=== PATIENT | female | born 1945 | race Caucasian/White ===

== ENCOUNTER → 2022-07-03 | Outpatient (CLI) | payer MEDICARE, BC ==
--- NOTE | 2022-07-03 18:58 | MR ---
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 Neck pain, weakness COMPARISON: None. TECHNIQUE: Multi planar, multi sequence imaging was performed utilizing: T1-weighted, T2-weighted, an d turbo inversion recovery imaging of the cervical spine. IV Contrast: None FINDINGS: Alignment: The cervical vertebral bodies have preserved heights. Alignment is within normal limits gi bryan patient positioning. Bones: There is a expansile mass thought to be coming from the C5 vertebrae which expands into the sp inal canal and left posterior elements. This appears to be within the bone itself and grossly measure s 2.6 x 2.4 x 1.8 cm. Cord: The spinal cord is displaced rightward at the level of C4-C5 secondary to mass described above. Discs: Multilevel disc desiccation is present. C2-C3: No significant disc pathology. The spinal canal is patent. No neural foraminal stenosis. C3-C4: No significant disc pathology. The spinal canal is patent. No neural foraminal stenosis. C4-C5: No significant disc pathology. The spinal canal is patent. Severe left neural foraminal steno sis secondary to mass described above. The right neural foramen is moderately narrowed secondary to u ncovertebral joint and facet joint arthropathy. C5-C6: No significant disc pathology. The spinal canal is patent. Severe left neural foraminal steno sis secondary to mass described above. The right neural foramen is moderately narrowed secondary to u ncovertebral joint and facet joint arthropathy. C6-C7: No significant disc pathology. The spinal canal is patent. No neural foraminal stenosis. C7-T1: No significant disc pathology. The spinal canal is patent. No neural foraminal stenosis. Other: None. IMPRESSION: Expansile mass felt to be within the C5 vertebral body which extends into the spinal canal and the le ft C5 vertebrae posterior elements resulting in severe left C4-C5 and C5-C6 neural foraminal stenosis . This displaces the spinal cord to the right. Spinal cord signal is grossly maintained. Further work up is recommended as well as comparisons priors at outside institutions. Consider CT C-spine with for further evaluation the osseous structures.
== END | disposition home or self-care (01) ==
LOC: RADMRIMAIN 11:38
PROVIDERS: ATTEND Psychiatry & Neurology Neurology
DX: M50.01 Cervical disc disorder with myelopathy, high cervical region (principal); M99.71 Connective tissue and disc stenosis of intervertebral foramina of cervical region
CPT/HCPCS: 72141

== ENCOUNTER → 2022-07-16 | Outpatient (CLI) | payer MEDICARE, BC ==
--- NOTE | 2022-07-17 18:45 | CT ---
EXAMINATION TYPE: CT cervical spine wo/w con, CT soft tissue neck wo/w con CT DLP: 860.90 mGycm, Automated exposure control for dose reduction was used. DATE OF EXAM: 07/16/2022 4:10 PM COMPARISON: MRI cervical spine 07/03/2022. CLINICAL INDICATION:Female, 77 years old with history of R22.2 LOCALIZEDSWELLING,MASS AND LUMP,TRUNK, R93.7, neck pain/pressure and left side arm numbness and tingle. abnormal MRI poss mass/lump. TECHNIQUE: Axial CT images from the skull base to the inferior aspect of T2 we obtained with and without IV cont rast. Coronal and sagittal reformatted images were also reviewed. Additional pre and postcontrast CT imaging of the neck was performed. A total of 70 cc of Isovue-370 was administered. Coronal and sagittal reformatted images were also reviewed. FINDINGS: Fracture: None. Osseous structures: At the level of the fifth vertebrae is a soft tissue mass measuring 19 x 15 x 22 mm with expansion felt to be into the osseous structures. Mass expands into the C5 vertebral body, le ft transverse process, pedicle and minimally in the lamina. This displaces the spinal cord posterior laterally to the right. This displaces the left C4-C5 exiting nerve. Soft tissue in the neural forame n best appreciated on series 3 image 71. This mass does demonstrate 56 Hounsfield units precontrast a nd 64 Hounsfield units postcontrast imaging. Mild multilevel osteophyte formation and disc degeneration changes. Vertebral alignment: Alignment within normal limits. Spinal canal/Neural Foramina: Moderate spinal canal stenosis secondary to mass mentioned above at the level of C5 is associated soft tissue at C4-C5 on the left completely filling the neural foramen. No additional areas of high-grade spinal canal stenosis. There is mild stenosis at C5-C6 with secondary to disc osteophyte complexes just inferior to the mass. Other: The airway is patent. The lung apices are clear. Brain: Visualized portions are grossly unremarkable. Orbits: Unremarkable Sinuses: Grossly unremarkable. Spaces of the neck: Clear and symmetric. Musculoskeletal: No acute osseous pathology. Lymph nodes: Multiple nonenlarged lymph nodes are seen along both anterior chains of the neck. Vascular structures: Visualized major arteries are patent without evidence of aneurysm. The visualize d vasculature is patent with scattered mild atherosclerosis. Thoracic Inlet/airway: Airway is patent. The lung apices are clear. Soft tissues/Thyroid: Thyroid and remainder of the soft tissues are unremarkable. Other: none. IMPRESSION: 1. Findings from prior MRI are confirmed with Soft tissue mass at the level of C5 vertebral body whi ch appears to be eroding process extending into the C5 vertebral body left pedicle and posterior point lay ira ents. This creates moderate spinal canal stenosis as well as a high degree of neural foraminal stenos is at left C4-C5 and to a lesser extent the left C5-C6 neural foramen. 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 Neurosurgical consultation recommended. 2. No evidence of spinal fracture. 3. Mild multilevel disc degeneration changes.
== END | disposition home or self-care (01) ==
LOC: RADCTMAIN 14:28
PROVIDERS: ATTEND Psychiatry & Neurology Neurology
DX: M48.02 Spinal stenosis, cervical region (principal); M99.71 Connective tissue and disc stenosis of intervertebral foramina of cervical region; M50.30 Other cervical disc degeneration, unspecified cervical region; R22.2 Localized swelling, mass and lump, trunk
CPT/HCPCS: 82565; 84520; 72127; 70492; 36415; Q9967

== ENCOUNTER → 2022-07-19 | Outpatient (CLI) | payer MEDICARE, BC ==
--- NOTE | 2022-07-19 11:59 | MR ---
EXAMINATION TYPE: MR cervical spine w con DATE OF EXAM: 07/19/2022 10:49 AM CLINICAL INDICATION:Female, 77 years old with history of R22.2 SWELLING, MASS AND LUMP, TRUNK Swellin g, mass COMPARISON: CT cervical spine 07/16/2022 and 07/19/2022r TECHNIQUE: Postcontrast imaging T1-weighted only of the cervical spine including axial and sagittal i maging. MR contrast: IV Contrast: 5.5 cc Gadavist, None. FINDINGS: Redemonstration of enhancing mass at the level of C5 measuring up to 2.3 x 2.4 x 1.1 cm which invades into the C4-C5 neural foramen and into the spinal canal at this level. There is redemonstration of m oderate spinal canal stenosis with slight rightward shift of the spinal cord and severe C4-C5 left ne ural foraminal stenosis. The left C5 transverse process including the vertebral artery/vein are not d efinitively visualized. IMPRESSION: 1. Avidly enhancing mass at the level of the left C4-C5 region which is felt to be arising from the C4-C5 neural foramen and extending into the bone at C5. This could represent mass effect from a nerve sheath tumor versus meningioma versus other etiologies. 2. Nonvisualization of the left vertebral artery/vein at the level of C5 secondary to #1. 3. C4-C5 severe neural foraminal stenosis and moderate spinal canal stenosis secondary to #1.
== END | disposition home or self-care (01) ==
LOC: RADMRIMAIN 10:06
PROVIDERS: ATTEND Psychiatry & Neurology Neurology
DX: M48.02 Spinal stenosis, cervical region (principal); M99.71 Connective tissue and disc stenosis of intervertebral foramina of cervical region; R22.2 Localized swelling, mass and lump, trunk
CPT/HCPCS: 72142; A9585

== ENCOUNTER → 2022-11-27 | Outpatient (CLI) | payer MEDICARE, BC ==
--- NOTE | 2022-11-27 15:27 | CT ---
EXAMINATION TYPE: CT brain wo con DATE OF EXAM: 11/27/2022 HISTORY: syncope CT DLP: 1017.7 mGycm. Automated Exposure Control for Dose Reduction was Utilized. TECHNIQUE: CT scan of the head is performed without contrast. COMPARISON: None. FINDINGS: There is no acute intracranial hemorrhage or midline shift identified. There is mild to m oderate diffuse ventricular and sulcal prominence consistent with diffuse age-related cerebral atroph y. There is mild to moderate low-attenuation in the periventricular white matter most likely consist ent with chronic small vessel ischemic change in patient of this age. The globes are intact and the visualized sinuses are clear. IMPRESSION: No acute intracranial hemorrhage or midline shift. There is [id number] diffuse ce rebral atrophy and probable chronic small vessel ischemic change noted.
== END | disposition home or self-care (01) ==
LOC: RADCTMAIN 14:53
PROVIDERS: ATTEND Internal Medicine
DX: G31.9 Degenerative disease of nervous system, unspecified (principal); R42 Dizziness and giddiness
CPT/HCPCS: 70450

== ENCOUNTER → 2023-03-13 | Outpatient (CLI) | payer MEDICARE, BC ==
--- NOTE | 2023-03-14 09:06 | MM ---
Reason for Exam: Screening (asymptomatic). Last mammogram was performed 4 year(s) and 2 month(s) ago. Patient History: Menarche at age 13. Patient has no children. Left ovary removed at age 53. Right ovary removed at age 53. Hysterectomy at age 53. Postmenopausal. Maternal cousin had breast cancer at or over age 50. Maternal cousin had breast cancer at or over age 50. Maternal cousin had breast cancer at or over age 50. Sister had breast cancer at or over age 50. Risk Values: Lina 5 year model risk: 3.5%. NCI Lifetime model risk: 7.0%. Prior Study Comparison: 12/25/2016 Bilateral Screening Mammogram, [facility] [place]. 01/07/2018 Bilateral Screening Mammogram, [facility] [place]. 01/12/2019 Bilateral Screening Mammogram, [facility] [place]. Tissue Density: The breast tissue is heterogeneously dense. This may lower the sensitivity of mammography. Findings: Analyzed By CAD. There is no suspicious group of microcalcifications or new suspicious mass in either breast. Overall Assessment: Benign, BI-RAD 2 Management: Screening Mammogram of both breasts in 1 year. . Patient should continue monthly self-breast exams. A clinical breast exam by your physician is recommended on an annual basis. This exam should not preclude additional follow-up of suspicious palpable abnormalities. Note on Lina scores and lifetime risk: 1. A Lian score greater than 3% is considered moderate risk. If this is the case, consider specialist referral to assess eligibility for a risk reducing agent. 2. If overall lifetime risk for the development of breast cancer is 20% or higher, the patient may qualify for future screening with alternating mammogram and breast MRI. Electronically signed and approved by: Jaron Llamas M.D. Radiologis
== END | disposition home or self-care (01) ==
LOC: RADMAMWWP 10:54
PROVIDERS: ATTEND Internal Medicine
DX: Z12.31 Encounter for screening mammogram for malignant neoplasm of breast (principal); Z78.0 Asymptomatic menopausal state; Z80.3 Family history of malignant neoplasm of breast
CPT/HCPCS: 77063; 77067

== ENCOUNTER → 2023-03-13 | Outpatient (CLI) | payer MEDICARE, BC ==
--- NOTE | 2023-03-13 12:09 | CTL ---
EXAMINATION TYPE: CT Low Dose Lung DATE OF EXAM ORDERED: 03/13/2023 HISTORY: . Lung cancer screening CT DLP: [address] CTDI: 1.9 mGy Automated exposure control for dose reduction was used. COMPARISON: None available. TECHNIQUE: Low dose computed tomography scan was performed through the chest at 1 mm thick sections a nd reconstructed images in multiple planes at 1 mm and [address] DIAGNOSTIC QUALITY: Satisfactory FINDINGS: LUNG NODULES: None. LUNGS: COPD: Severity: None Fibrosis: Severity: None Lymph nodes: No adenopathy. Other findings: RIGHT PLEURAL SPACE: Effusion: None Calcification: None Thickening: None Pneumothorax: None LEFT PLEURAL SPACE: Effusion: None Calcification: None Thickening: None Pneumothorax: None HEART: Heart Size: Normal Coronary Calcification: None Pericardial Effusion: None OTHER FINDINGS: Upper abdomen: None Bony thorax: None Supraclavicular region: None Other: None IMPRESSION: Negative lung cancer screening examination for significant pulmonary nodules. CT LUNG RAD AND CT CHEST RECOMMENDATION: Lung-Rad 1 Negative: Continue annual screening with LDCT in 12 months. S Modifier (other clinically significant findings): None.
== END | disposition home or self-care (01) ==
LOC: RADCTMAIN 11:26
PROVIDERS: ATTEND Internal Medicine
DX: Z12.2 Encounter for screening for malignant neoplasm of respiratory organs (principal); Z87.891 Personal history of nicotine dependence
CPT/HCPCS: 71271

== ENCOUNTER 2023-05-25 07:04 | Inpatient (IN) | payer MEDICARE, BC ==
[2023-05-25 08:17] LABS: Basophils # (A) 0.1 k/uL (0-0.2); Basophils % (A) 1 %; Eosinophils # (A) 0.1 k/uL (0-0.7); Eosinophils % (A) 2 %; HCT 45.1 % (34.0-46.0); HGB 14.6 gm/dL (11.4-16.0); Lymphocytes # (A) 1.3 k/uL (1.0-4.8); Lymphocytes % (A) 16 %; MCH 29.6 pg (25.0-35.0); MCHC 32.5 g/dL (31.0-37.0); Mean Platelet Volume 7.8; Monocytes # (A) 0.6 k/uL (0-1.0); Monocytes % (A) 8 %; Neutrophils # (A) 5.7 k/uL (1.3-7.7); Neutrophils % (A) 72 %; Platelet Count 331 k/uL (150-450); RBC 4.95 m/uL (3.80-5.40); WBC 7.9 k/uL (3.8-10.6)
--- NOTE | 2023-05-25 09:16 | ED ---
General Adult HPI - General Chief complaint: GI Bleed Stated complaint: GI Bleed Time Seen by Provider: 05/25/23 08:55 Source: patient, RN notes reviewed, old records reviewed Mode of arrival: ambulatory Limitations: no limitations - History of Present Illness Initial comments: This is a 78-year-old female who presents emergency Department complaining of having diarrhea all day yesterday and 8:00 last night started having bright red blood per rectum and she states now she is just passing blood and clots. Patient states she's had a colonoscopy about 4 years ago and is supposed to have it every 3 years because of significant family history. Patient states is a little abdominal pressure in the suprapubic region but there is no point tenderness. Patient denies any nausea vomiting. Patient has any difficulty breathing or shortness of breath. Patient denies any lightheadedness or dizziness. Eyes any blood thinners - Related Data Allergies Allergy/AdvReac Type Severity Reaction Status Date / Time codeine Allergy Unknown Verified 05/25/23 07:14 shellfish derived Allergy Anaphylaxis Verified 05/25/23 07:14 Review of Systems ROS Statement: Those systems with pertinent positive or pertinent negative responses have been documented in the HPI. ROS Other: All systems not noted in ROS Statement are negative. Past Medical History Past Medical History: COPD, Hyperlipidemia, Hypertension History of Any Multi-Drug Resistant Organisms: None Reported Past Surgical History: Orthopedic Surgery Past Psychological History: Anxiety, Depression Smoking Status: Former smoker Past Alcohol Use History: None Reported Past Drug Use History: None Reported General Exam - General Exam Comments Initial Comments: GENERAL: Patient is well-developed and well-nourished. Patient is nontoxic and well- hydrated and is in mild distress. ENT: Neck is soft and supple. No significant lymphadenopathy is noted. Oropharynx is clear. Moist mucous membranes. Neck has full range of motion without eliciting any pain. EYES: The sclera were anicteric and conjunctiva were pink and moist. Extraocular movements were intact and pupils were equal round and reactive to light. Eyelids were unremarkable. PULMONARY: Unlabored respirations. Good breath sounds bilaterally. No audible rales rhonchi or wheezing was noted. CARDIOVASCULAR: There is a regular rate and rhythm without any murmurs gallops or rubs. ABDOMEN: Patient has minimal tenderness in the suprapubic region SKIN: Skin is clear with no lesions or rashes and otherwise unremarkable. NEUROLOGIC: Patient is alert and oriented x3. Cranial nerves II through XII are grossly intact. Motor and sensory are also intact. Normal speech, volume and content. Symmetrical smile. MUSCULOSKELETAL: Normal extremities with adequate strength and full range of motion. LYMPHATICS: No significant lymphadenopathy is noted PSYCHIATRIC: Normal psychiatric evaluation. Limitations: no limitations Course Vital Signs 05/25/23 05/25/23 05/25/23 07:12 09:30 10:05 Temperature 98 F 98.2 F Pulse Rate 86 74 70 Respiratory 18 16 17 Rate Blood Pressure 169/83 152/88 166/80 O2 Sat by Pulse 96 96 95 Oximetry 05/25/23 05/25/23 11:11 12:15 Temperature 98.2 F Pulse Rate 78 74 Respiratory 17 18 Rate Blood Pressure 158/85 155/90 O2 Sat by Pulse 96 99 Oximetry Medical Decision Making - Medical Decision Making Patient was diagnosed with diverticulitis 1:20 PM Was pt. sent in by a medical professional or institution (, PA, DISABILITY AIDE, urgent care, hospital, or alf...) When possible be specific @ -[No] Did you speak to anyone other than the patient for history (EMS, parent, family, police, friend...)? What history was obtained from this source @ -[No] Did you review nursing and triage notes (agree or disagree)? Why? @ -[I reviewed and agree with nursing and triage notes] Were old charts reviewed (outside hosp., previous admission, EMS record, old EKG, old radiological studies, urgent care reports/EKG's, alf records)? Report findings @ -I reviewed prior charts in prior labwork on this patient Differential Diagnosis (chest pain, altered mental status, abdominal pain women, abdominal pain men, vaginal bleeding, weakness, fever, dyspnea, syncope, headache, dizziness, GI bleed, back pain, seizure, CVA, palpatations, mental health, musculoskeletal)? @ -Differential Abdominal Pain Women: Appendicitis, Cholecystitis, diverticulosis, ischemic bowel, pancreatitis, hepatitis, UTI, gastroenteritis, AAA, incarcerated hernia, bowel obstruction, constipation, inflammatory bowel, hepatitis, peptic ulcer disease, splenic infarction, perforated viscus, vulvitis, ovarian torsion, PID, kidney stone, placenta abruption, this is not meant to be an all-inclusive list EKG interpreted by me (3pts min.). @ -[As above] X-rays interpreted by me (1pt min.). @ -[None done] CT interpreted by me (1pt min.). @ -Computed tomography scan of the abdomen and pelvis shows diverticulitis with diverticulosis. U/S interpreted by me (1pt. min.). @ -[None done] What testing was considered but not performed or refused? (CT, X-rays, U/S, labs)? Why? @ -[None] What meds were considered but not given or refused? Why? @ -[None] Did you discuss the management of the patient with other professionals (professionals i.e. DrMandy, PA, DISABILITY AIDE, lab, RT, psych nurse, dialysis social worker, yard general car supervisor, teacher, special service officer, spring encaser)? Give summary @ -I spoke with some physicians he agreed to admit the patient I spoke with Dr. Patrick she agreed to be on consult for the patient Was smoking cessation discussed for >3mins.? @ -[No] Was critical care preformed (if so, how long)? @ -[No] Were there social determinants of health that impacted care today? How? (Homelessness, low income, unemployed, alcoholism, drug addiction, transportation, low edu. Level, literacy, decrease access to med. care, detention, rehab)? @ -[No] Was there de-escalation of care discussed even if they declined (Discuss DNR or withdrawal of care, Hospice)? DNR status @ -[No] What co-morbidities impacted this encounter? (DM, HTN, Smoking, COPD, CAD, Cancer, CVA, ARF, Chemo, Hep., AIDS, mental health diagnosis, sleep apnea, morbid obesity)? @ -[None] Was patient admitted / discharged? Hospital course, mention meds given and ro tatitlek, prescriptions, significant lab abnormalities, going to OR and other pertinent info. @ -Patient had diverticulitis and started the patient antibiotics. Patient's hemoglobin was stable but I did do repeat CBCs. I consulted Dr. Darnell redding wrote admitting orders. Some physicians agreed to admit the patient Undiagnosed new problem with uncertain prognosis? @ -[No] Drug Therapy requiring intensive monitoring for toxicity (Heparin, Nitro, Insulin, Cardizem)? @ -[No] Were any procedures done? @ -[No] Diagnosis/symptom? @ -GI bleed Acute, or Chronic, or Acute on Chronic? @ -Acute Uncomplicated (without systemic symptoms) or Complicated (systemic symptoms)? @ -Complicated Side effects of treatment? @ -[No] Exacerbation, Progression, or Severe Exacerbation? @ -[No] Poses a threat to life or bodily function? How? (Chest pain, [place], [place], pneumonia, PE, COPD, DKA, ARF, appy, cholecystitis, CVA, Diverticulitis, Homicidal, Suicidal, threat to staff... and all critical care pts) @ -Yes this could lead to anemia and hypoperfusion and end organ dysfunction Diagnosis/symptom? @ -Diverticulitis Acute, or Chronic, or Acute on Chronic? @ -Acute Uncomplicated (without systemic symptoms) or Complicated (systemic symptoms)? @ -Complicated Side effects of treatment? @ -[none] Exacerbation, Progression, or Severe Exacerbation] @ -[no] Poses a threat to life or bodily function? @ -Yesterday this could lead to sepsis and end organ dysfunction - Lab Data Result diagrams: 05/25/23 07:37 05/25/23 07:37 Lab Results 05/25/23 05/25/23 05/25/23 Range/Units 07:25 07:37 07:37 WBC 7.9 (3.8-10.6) k/uL RBC 4.95 (3.80-5.40) m/uL Hgb 14.6 (11.4-16.0) gm/dL Hct 45.1 (34.0-46.0) % MCV 91.0 (80.0-100.0) fL MCH 29.6 (25.0-35.0) pg MCHC 32.5 (31.0-37.0) g/dL RDW 13.0 (11.5-15.5) % Plt Count 331 (150-450) k/uL MPV 7.8 Neutrophils % 72 % Lymphocytes % 16 % Monocytes % 8 % Eosinophils % 2 % Basophils % 1 % Neutrophils # 5.7 (1.3-7.7) k/uL Lymphocytes # 1.3 (1.0-4.8) k/uL Monocytes # 0.6 (0-1.0) k/uL Eosinophils # 0.1 (0-0.7) k/uL Basophils # 0.1 (0-0.2) k/uL APTT 22.6 (22.0-30.0) sec Sodium (137-145) mmol/L Potassium (3.5-5.1) mmol/L Chloride (98-107) mmol/L Carbon Dioxide (22-30) mmol/L Anion Gap mmol/L BUN (7-17) mg/dL Creatinine (0.52-1.04) mg/dL Est GFR (CKD-EPI)AfAm (>60 ml/min/1.73 sqM) Est GFR (CKD-EPI)NonAf (>60 ml/min/1.73 sqM) Glucose (74-99) mg/dL Calcium (8.4-10.2) mg/dL Total Bilirubin (0.2-1.3) mg/dL AST (14-36) U/L ALT (4-34) U/L Alkaline Phosphatase (38-126) U/L Troponin I (0.000-0.034) ng/mL Total Protein (6.3-8.2) g/dL Albumin (3.5-5.0) g/dL Blood Type Blood Type Confirm B Positive Blood Type Recheck Bld Type Recheck Status Antibody Screen Spec Expiration Date 05/25/23 05/25/23 05/25/23 Range/Units 07:37 07:37 07:37 WBC (3.8-10.6) k/uL RBC (3.80-5.40) m/uL Hgb (11.4-16.0) gm/dL Hct (34.0-46.0) % MCV (80.0-100.0) fL MCH (25.0-35.0) pg MCHC (31.0-37.0) g/dL RDW (11.5-15.5) % Plt Count (150-450) k/uL MPV Neutrophils % % Lymphocytes % % Monocytes % % Eosinophils % % Basophils % % Neutrophils # (1.3-7.7) k/uL Lymphocytes # (1.0-4.8) k/uL Monocytes # (0-1.0) k/uL Eosinophils # (0-0.7) k/uL Basophils # (0-0.2) k/uL APTT (22.0-30.0) sec Sodium 141 (137-145) mmol/L Potassium 4.2 (3.5-5.1) mmol/L Chloride 104 (98-107) mmol/L Carbon Dioxide 26 (22-30) mmol/L Anion Gap 11 mmol/L BUN 15 (7-17) mg/dL Creatinine 0.99 (0.52-1.04) mg/dL Est GFR (CKD-EPI)AfAm 64 (>60 ml/min/1.73 sqM) Est GFR (CKD-EPI)NonAf 55 (>60 ml/min/1.73 sqM) Glucose 107 H (74-99) mg/dL Calcium 9.4 (8.4-10.2) mg/dL Total Bilirubin 0.5 (0.2-1.3) mg/dL AST 22 (14-36) U/L ALT 18 (4-34) U/L Alkaline Phosphatase 62 (38-126) U/L Troponin I <0.012 (0.000-0.034) ng/mL Total Protein 7.0 (6.3-8.2) g/dL Albumin 4.3 (3.5-5.0) g/dL Blood Type Blood Type Confirm Blood Type Recheck No Previous Record Bld Type Recheck Status CABO Indicated Antibody Screen Spec Expiration Date 05/28/2023233605/25/23 Range/Units 07:40 WBC (3.8-10.6) k/uL RBC (3.80-5.40) m/uL Hgb (11.4-16.0) gm/dL Hct (34.0-46.0) % MCV (80.0-100.0) fL MCH (25.0-35.0) pg MCHC (31.0-37.0) g/dL RDW (11.5-15.5) % Plt Count (150-450) k/uL MPV Neutrophils % % Lymphocytes % % Monocytes % % Eosinophils % % Basophils % % Neutrophils # (1.3-7.7) k/uL Lymphocytes # (1.0-4.8) k/uL Monocytes # (0-1.0) k/uL Eosinophils # (0-0.7) k/uL Basophils # (0-0.2) k/uL APTT (22.0-30.0) sec Sodium (137-145) mmol/L Potassium (3.5-5.1) mmol/L Chloride (98-107) mmol/L Carbon Dioxide (22-30) mmol/L Anion Gap mmol/L BUN (7-17) mg/dL Creatinine (0.52-1.04) mg/dL Est GFR (CKD-EPI)AfAm (>60 ml/min/1.73 sqM) Est GFR (CKD-EPI)NonAf (>60 ml/min/1.73 sqM) Glucose (74-99) mg/dL Calcium (8.4-10.2) mg/dL Total Bilirubin (0.2-1.3) mg/dL AST (14-36) U/L ALT (4-34) U/L Alkaline Phosphatase (38-126) U/L Troponin I (0.000-0.034) ng/mL Total Protein (6.3-8.2) g/dL Albumin (3.5-5.0) g/dL Blood Type B Positive Blood Type Confirm Blood Type Recheck Bld Type Recheck Status Antibody Screen NEGATIVE Spec Expiration Date Disposition Clinical Impression: Hematemesis, Diverticulitis Disposition: ADMITTED IP TO THIS [facility] Referrals: Senthil Rutherford MD [Primary Care Provider] - 1-2 days Time of Disposition: 13:24
[2023-05-25 10:51] LABS: ALT 18 U/L (4-34); AST 22 U/L (14-36); African American GFR (CKD) 64 (>60 ml/min/1.73 sqM); Albumin 4.3 g/dL (3.5-5.0); Alkaline Phosphatase 62 U/L (38-126); Anion Gap 11 mmol/L; Blood Urea Nitrogen 15 mg/dL (7-17); Calcium 9.4 mg/dL (8.4-10.2); Carbon Dioxide 26 mmol/L (22-30); Chloride 104 mmol/L (98-107); Glucose 107 mg/dL (74-99); Non-African American GFR(CKD) 55 (>60 ml/min/1.73 sqM); Potassium 4.2 mmol/L (3.5-5.1); Sodium 141 mmol/L (137-145); Total Bilirubin 0.5 mg/dL (0.2-1.3)
--- NOTE | 2023-05-25 13:02 | P.GSCN ---
History of Present Illness Consult date: 05/25/23 History of present illness: CHIEF COMPLAINT: Gastrointestinal bleeding HISTORY OF PRESENT ILLNESS: The patient is a 78 year old female who presents with acute bleeding. Last colonoscopy 4 years ago. She is not sure whether she knew she has diverticulosis. She has history of polyps. She reports bright red blood per rectum during her hospitalization. She ate nuts prior to abdominal pain and bleeding. General surgery is consulted for gastrointestinal bleeding and colitis PAST MEDICAL HISTORY: See list and reviewed PAST SURGICAL HISTORY: See list and reviewed MEDICATIONS: See list and reviewed ALLERGIES: See list and reviewed SOCIAL HISTORY: See list and reviewed FAMILY HISTORY: See list and reviewed REVIEW OF ORGAN SYSTEMS: CONSTITUTIONAL: No fevers or chills. No recent weight loss. EYES: Denies any trouble with vision. No glasses. HEENT: No difficulties with hearing. No nosebleeds. No difficulty swallowing. RESPIRATORY: Has chronic obstructive pulmonary disease. CARDIOVASCULAR: Has hyperlipidemia. Has hypertensive heart disease. GASTROINTESTINAL: History of polyps. Has gastroesophageal reflux disease. Last colonoscopy 4 years ago. GENITOURINARY: Denies any blood in urine or increased urinary frequency. NEUROLOGICAL: Denies any numbness or tingling along the distal extremities. No seizure disorders or headaches. MUSCULOSKELETAL: Denies any back pain, stiffness or joint arthritis. SKIN: No current skin cancer. No rash. PSYCHIATRIC: Has generalized anxiety disorder. Has depressive disorder. ENDOCRINE: Denies current thyroid disorders. Denies any blood sugar glucose intolerance. HEME/LYMPHATIC: Denies any lumps and bumps around the neck. No recent deep venous thrombosis. ALLERGY/IMMUNOLOGY: No immunoglobulin therapy. No immune deficiencies. BREAST: Denies current breast lumps, pain or nipple discharge. PHYSICAL EXAM: VITALS: Reviewed CONSTITUTIONAL: Well developed and in no acute distress. EYES: Conjuctivae without sclera icterus. Extraocular movements grossly intact. HEAD, EARS, NOSE, THROAT: Moist buccal mucosa. Head is atraumatic, normocephalic. Hears conversational speech. No nasal drainage. NECK: Supple. No JV distention. No thyroidomegaly. RESPIRATORY: Non-labored respirations and equal bilateral excursions. No gross wheezes. CARDIOVASCULAR: Palpable 2+ radial pulses. ABDOMEN: Tender left lower quadrant suprapubic. No diffuse peritonitis. LYMPH: No neck lymphadenopathy. MUSCULOSKELETAL: No clubbing cyanosis or edema SKIN: Warm and well perfused with good skin turgor. NEUROLOGIC: Cranial nerves II through XII grossly intact. No focal or lateralizing signs. PSYCH: Appropriate affect. Alert and oriented to person, place and time. Displays appropriate insight. CLINCAL LABS: Reviewed. Hemoglobin 14.6 on admission. IMAGING: Independently reviewed. CT of the abdomen and pelvis independently reviewed demonstrated sigmoid colitis with diverticulosis. This is my inde pendent interpretation for diverticulitis, acute. RADIOLOGY: Report reviewed was CT abdomen and pelvis demonstrates redundant sigmoid colon with colitis ASSESSMENT: 1. Acute sigmoid diverticulitis with bleeding 2. Hypertensive heart disease 3. Gastroesophageal reflux disease 4. Depressive disorder 5. Personal history of polyps 6. Hematochezia, bright red blood per rectum PLAN: 1. IV fluid hydration. 2. Okay for liquids. 3. Recommend admission. 4. IV antibiotics for colitis with GI bleed. ADVANCE DIRECTIVE: CODE status in chart Thank you for this kind consultation. Past Medical History Past Medical History: COPD, Hyperlipidemia, Hypertension History of Any Multi-Drug Resistant Organisms: None Reported Past Surgical History: Orthopedic Surgery Past Psychological History: Anxiety, Depression Smoking Status: Former smoker Past Alcohol Use History: None Reported Past Drug Use History: None Reported Medications and Allergies Home Medications Medication Instructions Recorded Confirmed Type ALPRAZolam [Xanax XR] 0.5 mg PO DAILY 05/25/23 05/25/23 History Acetaminophen Tab [Tylenol] 500 mg PO DAILY 05/25/23 05/25/23 History Desvenlafaxine Succinate [Pristiq 50 mg PO DAILY 05/25/23 05/25/23 History ER] Ergocalciferol [Vitamin D2 (1250 1,250 mcg PO TU 05/25/23 05/25/23 History Mcg = 23009 Iu)] Lansoprazole [Prevacid] 30 mg PO DAILY 05/25/23 05/25/23 History NIFEdipine XL [Procardia XL] 60 mg PO DAILY 05/25/23 05/25/23 History PARoxetine HCL [Paxil] 40 mg PO HS 05/25/23 05/25/23 History Levofloxacin [Levaquin] 750 mg PO DAILY 10 Days #10 tab 05/27/23 Rx metroNIDAZOLE [Flagyl] 500 mg PO TID 10 Days #30 tab 05/27/23 Rx Allergies Allergy/AdvReac Type Severity Reaction Status Date / Time shellfish derived Allergy Anaphylaxis Verified 05/25/23 14:17 codeine AdvReac Lethargic Verified 05/25/23 14:17 Surgical - Exam Vital Signs Temp Pulse Resp BP Pulse Ox 98 F 86 18 169/83 96 05/25/23 07:12 05/25/23 07:12 05/25/23 07:12 05/25/23 07:12 05/25/23 07:12 Results - Labs 05/27/23 05:20 05/27/23 05:20 Abnormal Lab Results - Last 24 Hours (Table) 05/25/23 Range/Units 07:37 Glucose 107 H (74-99) mg/dL Diabetes panel 05/25/23 Range/Units 07:37 Sodium 141 (137-145) mmol/L Potassium 4.2 (3.5-5.1) mmol/L Chloride 104 (98-107) mmol/L Carbon Dioxide 26 (22-30) mmol/L BUN 15 (7-17) mg/dL Creatinine 0.99 (0.52-1.04) mg/dL Glucose 107 H (74-99) mg/dL Calcium 9.4 (8.4-10.2) mg/dL AST 22 (14-36) U/L ALT 18 (4-34) U/L Alkaline Phosphatase 62 (38-126) U/L Total Protein 7.0 (6.3-8.2) g/dL Albumin 4.3 (3.5-5.0) g/dL Calcium panel 05/25/23 Range/Units 07:37 Calcium 9.4 (8.4-10.2) mg/dL Albumin 4.3 (3.5-5.0) g/dL Pituitary panel 05/25/23 Range/Units 07:37 Sodium 141 (137-145) mmol/L Potassium 4.2 (3.5-5.1) mmol/L Chloride 104 (98-107) mmol/L Carbon Dioxide 26 (22-30) mmol/L BUN 15 (7-17) mg/dL Creatinine 0.99 (0.52-1.04) mg/dL Glucose 107 H (74-99) mg/dL Calcium 9.4 (8.4-10.2) mg/dL Adrenal panel 05/25/23 Range/Units 07:37 Sodium 141 (137-145) mmol/L Potassium 4.2 (3.5-5.1) mmol/L Chloride 104 (98-107) mmol/L Carbon Dioxide 26 (22-30) mmol/L BUN 15 (7-17) mg/dL Creatinine 0.99 (0.52-1.04) mg/dL Glucose 107 H (74-99) mg/dL Calcium 9.4 (8.4-10.2) mg/dL Total Bilirubin 0.5 (0.2-1.3) mg/dL AST 22 (14-36) U/L ALT 18 (4-34) U/L Alkaline Phosphatase 62 (38-126) U/L Total Protein 7.0 (6.3-8.2) g/dL Albumin 4.3 (3.5-5.0) g/dL
--- NOTE | 2023-05-25 13:12 | CT ---
EXAMINATION TYPE: CT angio abdomen pelvis DATE OF EXAM: 05/25/2023 COMPARISON: None INDICATION: Abdominal pain and GI Bleed DLP: 1162.4 mGycm, Automated exposure control for dose reduction was used. CONTRAST: 100 ml mL of Isovue 370. Study performed without Oral Contrast TECHNIQUE: Axial images were obtained from above the diaphragm to the pubic rami in the axial plane a t 5 mm thick sections. Reconstructed images are reviewed on the computer in the coronal plane. FINDINGS: Limited CT sections are obtained the lung bases. The lung bases are clear. CT ABDOMEN: Liver: Normal Spleen: Normal Pancreas: Normal Adrenal glands: The adrenal glands are normal. Gallbladder: Normal Kidneys: No masses are evident. No hydronephrosis is present. There is a 2.6 cm cyst inferior later al right kidney. Delayed images were obtained through the kidneys, which remain unremarkable. Aorta: Vascular calcification is within the aorta. No suspicious contrast collection is evident. No source for GI bleeding identified. Inferior vena cava: Normal. CT PELVIS: Sigmoid colon is mildly thickened. Some inflammatory changes are at the distal sigmoid colon. Diverti cular changes are also present distal sigmoid colon. Some mild diverticulitis may be present. No absc ess formation or free air is evident. There are loops of bowel which are incompletely distended or la ck oral contrast limiting their evaluation. Appendix: Not identified. No dilated tubular structure or inflammatory changes. Urinary bladder: Normal. Genitourinary structures: Uterus and ovaries are not identified Osseous structures: No suspicious lytic or sclerotic lesions. IMPRESSION: 1. Colitis and/or mild diverticulitis redundant distal sigmoid colon
[2023-05-25] MEDS ORDERED: SODIUM CHLORIDE 0.9% 1,000 ML IV ONE (13:27)
[2023-05-25] MEDS: PIPERACILLIN-TAZOBACTAM 3.375 GM in SODIUM CHLORIDE 0.9% 100 ML IVPB SCH ×2 (13:33→21:08)
[2023-05-25 14:24] LABS: Basophils # (A) 0.1 k/uL (0-0.2); Basophils % (A) 1 %; Eosinophils # (A) 0.1 k/uL (0-0.7); Eosinophils % (A) 1 %; HCT 42.4 % (34.0-46.0); HGB 13.8 gm/dL (11.4-16.0); Lymphocytes # (A) 1.5 k/uL (1.0-4.8); Lymphocytes % (A) 19 %; MCH 29.9 pg (25.0-35.0); MCHC 32.7 g/dL (31.0-37.0); MCV 91.6 fL (80.0-100.0); Mean Platelet Volume 7.6; Monocytes # (A) 0.6 k/uL (0-1.0); Monocytes % (A) 7 %; Neutrophils # (A) 5.4 k/uL (1.3-7.7); Neutrophils % (A) 70 %; Platelet Count 324 k/uL (150-450); RBC 4.62 m/uL (3.80-5.40); RDW 12.7 % (11.5-15.5); WBC 7.8 k/uL (3.8-10.6)
--- NOTE | 2023-05-25 15:09 | P.HPIM ---
History of Present Illness H&P Date: 05/25/23 History of Presenting Illness: Patient is a very pleasant 78-year-old female with a past medical history of hypertension, hyperlipidemia, and COPD. She presented to the emergency department secondary to complaints of bright red blood per rectum. Patient reports she began experiencing intermittent abdominal cramping/pain followed by multiple episodes of diarrhea yesterday. Patient reports yesterday evening she began noticing having bright red blood per her rectum. Patient reports blood was bright red and she had no control over it. Patient reports today she continues with episodes of bright red blood per rectum and is now having large clots as well. Patient denies history of GI bleeds in the past and reports last colonoscopy was about 4 or 5 years ago. Patient underwent full evaluation in the emergency department. Vital signs upon arrival blood pressure 169/83, heart rate 86, respiratory rate 18, temp 98.0F, SpO2 of 96% on room air. Labs completed and reviewed. CBC unremarkable with hemoglobin of 14.6. Coagulation profile showed a normal PTT of 22.6. BMP unremarkable with sodium 141, potassium 4.2, chloride 104, bicarb 26, and anion gap of 11. BUN normal findings at 15 with creatinine of 0.99 and GFR of 55. Blood glucose 107. Liver profile unremarkable. Troponin negative at less than 0.012. CTA abdomen and pelvis was completed with results stating colitis and/or mild diverticulitis redundant distal sigmoid colon. ER physician discussed case with general surgeon on-call who would like patient admitted under medicine services was consulted general surgery. Patient being admitted under our services at this time. Review of systems: Pertinent positives and negatives as discussed in HPI, a complete review of systems was performed and all other systems are negative. Physical exam: Vital signs reviewed and stable. General: Nontoxic, no distress and appears stated age. Derm: Skin warm and dry, normal coloration for ethnicity. Head: Atraumatic, normocephalic and symmetric. Eyes: EOMs intact, no lid lag, and anicteric sclera Mouth: no lip lesions, mucus membranes moist Cardiovascular: regular rate and rhythm with normal S1S2, no murmur, positive posterior tibial pulses bilaterally, and cap refill < 2 seconds. Lungs: Respirations even, regular, and unlabored on room air. Lungs CTA bilaterally, no rhonchi, no rales, no wheezing, and no accessory muscle usage. Abdominal: soft, nontender to palpation, no guarding, no appreciable organomegaly Ext: ROM intact. No gross muscle atrophy, no edema, no contractures Neuro: Speech clear, face symmetrical and CN II-XII grossly intact with no noted focal neuro deficits Psych: Alert and oriented to person, place, time, and situation. Appropriate and pleasant affect. Assessment and Plan of Care: Rectal bleeding, lower GI bleed Acute diverticulitis -Consult general surgery. -CT abdomen and pelvis without contrast -Monitor H&H every 6 hours x 4 and transfuse as needed for hemoglobin less than 7. -Protonix 40 mg IVP daily. -Clear liquid diet until cleared by general surgeon to advance -Continued gentle hydration with 0.9% normal saline at 75 mL per hour. -Zosyn 3.375 g IVPB every 8 hours -SCDs for DVT prophylaxis. Hypertension Hyperlipidemia COPD Neuropathy Anxiety Home medications reviewed and reordered. Patient to continue daily medication regimen with Xanax 0.5 mg daily as needed, Pristiq 50 mg daily, Procardia 60 mg daily, and Paxil 40 mg nightly. Data and imaging reviewed: -Vital signs upon arrival blood pressure 169/83, heart rate 86, respiratory rate 18, temp 98.0F, SpO2 of 96% on room air. -Labs completed and reviewed. CBC unremarkable with hemoglobin of 14.6. Coagulation profile showed a normal PTT of 22.6. BMP unremarkable with sodium 141, potassium 4.2, chloride 104, bicarb 26, and anion gap of 11. BUN normal findings at 15 with creatinine of 0.99 and GFR of 55. Blood glucose 107. Liver profile unremarkable. Troponin negative at less than 0.012. -CTA abdomen and pelvis was completed with results stating colitis and/or mild diverticulitis redundant distal sigmoid colon. CODE STATUS: Full code DVT prophylaxis: SCDs Anticipated discharge date: Clinical course to determine Anticipated discharge place: Clinical course to determine Patient was seen independently by Nurse Practitioner. This document was prepared using [employer] dictation software. Please allow for errors in pelota maker while rare they do occur. Past Medical History Past Medical History: COPD, Hyperlipidemia, Hypertension History of Any Multi-Drug Resistant Organisms: None Reported Past Surgical History: Orthopedic Surgery Past Psychological History: Anxiety, Depression Smoking Status: Former smoker Past Alcohol Use History: None Reported Past Drug Use History: None Reported Medications and Allergies Home Medications Medication Instructions Recorded Confirmed Type ALPRAZolam [Xanax XR] 0.5 mg PO DAILY 05/25/23 05/25/23 History Acetaminophen Tab [Tylenol Tab] 500 mg PO DAILY 05/25/23 05/25/23 History Desvenlafaxine Succinate [Pristiq 50 mg PO DAILY 05/25/23 05/25/23 History ER] Ergocalciferol [Vitamin D2 (1250 1,250 mcg PO TU 05/25/23 05/25/23 History Mcg = 70229 Iu)] Lansoprazole [Prevacid] 30 mg PO DAILY 05/25/23 05/25/23 History NIFEdipine XL [Procardia XL] 60 mg PO DAILY 05/25/23 05/25/23 History PARoxetine HCL [Paxil] 40 mg PO HS 05/25/23 05/25/23 History Allergies Allergy/AdvReac Type Severity Reaction Status Date / Time shellfish derived Allergy Anaphylaxis Verified 05/25/23 14:17 codeine AdvReac Lethargic Verified 05/25/23 14:17 Physical Exam Vitals: Vital Signs Temp Pulse Resp BP Pulse Ox 05/25/23 14:10 73 18 147/86 95 05/25/23 12:15 98.2 F 74 18 155/90 99 05/25/23 11:11 78 17 158/85 96 05/25/23 10:05 70 17 166/80 95 05/25/23 09:30 98.2 F 74 16 152/88 96 05/25/23 07:12 98 F 86 18 169/83 96 Intake and Output 05/25/23 05/25/23 05/25/23 06:59 14:59 22:59 Other: Weight 56.245 kg Results CBC & Chem 7: 05/25/23 13:45 05/25/23 07:37 Labs: Abnormal Lab Results - Last 24 Hours (Table) 05/25/23 Range/Units 07:37 Glucose 107 H (74-99) mg/dL
[2023-05-25] MEDS ORDERED: ACETAMINOPHEN TAB 325 MG TAB PO PRN (18:13)
[2023-05-25] MEDS: PARoxetine 20 MG TAB PO SCH (21:08)
[2023-05-25] MEDS: DICYCLOMINE 10 MG CAP PO SCH (21:08)
[2023-05-25 22:46] LABS: Basophils # (A) 0.1 k/uL (0-0.2); Basophils % (A) 1 %; Eosinophils # (A) 0.1 k/uL (0-0.7); Eosinophils % (A) 2 %; HCT 40.4 % (34.0-46.0); HGB 13.3 gm/dL (11.4-16.0); Lymphocytes # (A) 1.6 k/uL (1.0-4.8); Lymphocytes % (A) 21 %; Mean Platelet Volume 7.5; Monocytes # (A) 0.7 k/uL (0-1.0); Monocytes % (A) 9 %; Neutrophils % (A) 65 %; Platelet Count 294 k/uL (150-450); RBC 4.44 m/uL (3.80-5.40); RDW 12.8 % (11.5-15.5); WBC 7.7 k/uL (3.8-10.6)
[2023-05-26] MEDS: PIPERACILLIN-TAZOBACTAM 3.375 GM in SODIUM CHLORIDE 0.9% 100 ML IVPB SCH ×3 (05:28→23:30)
[2023-05-26] MEDS ORDERED: PANTOPRAZOLE 40 MG TABLET PO SCH (07:30)
[2023-05-26 08:42] LABS: HCT 38.9 % (37.2-46.3); HGB 12.4 g/dL (12.0-15.0); MCHC 31.9 g/dL (32.0-37.0); MCV 90.9 FL (80.0-97.0); NRBC Per 100 WBC 0 X 10*3/uL (0.00-0.01); Platelet Count 298 X 10*3/uL (140-440); RBC 4.28 X 10*6/uL (4.10-5.20); WBC 7.38 X 10*3/uL (4.50-10.00)
[2023-05-26 08:55] LABS: ALT 9 U/L (8-44); AST 13 U/L (13-35); Albumin 3.8 g/dL (3.8-4.9); Alkaline Phosphatase 57 U/L (41-126); BUN/Creat Ratio 11.12 Ratio (12.00-20.00); Blood Urea Nitrogen 8.9 mg/dL (9.0-27.0); Calcium 8.7 mg/dL (8.7-10.3); Carbon Dioxide 24.1 mmol/L (21.6-31.8); Chloride 108 mmol/L (96-109); Globulin 1.9 g/dL (1.6-3.3); Glucose 102 mg/dL (70-110); Potassium 3.9 mmol/L (3.5-5.5); Sodium 143 mmol/L (135-145); Total Bilirubin 0.4 mg/dL (0.3-1.2); Total Protein 5.7 g/dL (6.2-8.2)
[2023-05-26] MEDS ORDERED: ACETAMINOPHEN TAB 500 MG TAB PO SCH (09:00)
[2023-05-26] MEDS: ALPRAZolam 0.25 MG TAB PO SCH ×4 (09:06→22:15)
[2023-05-26] MEDS: DICYCLOMINE 10 MG CAP PO SCH ×4 (09:07→22:16)
[2023-05-26] MEDS: DESVENLAFAXINE SUCCINATE 50 MG TAB.ER.24H PO SCH (09:07)
[2023-05-26] MEDS ORDERED: PROPOFOL 10 MG/ML 20 ML VIAL IV ONE (10:04)
[2023-05-26] MEDS ORDERED: LIDOCAINE 1% INJ 10MG/ML (20 ML MDV) ONE (10:04)
[2023-05-26] MEDS ORDERED: SODIUM CHLORIDE 0.9% 500 ML 500 ML IV ONE (10:05)
--- NOTE | 2023-05-26 13:45 | P.PN ---
Subjective Progress Note Date: 05/26/23 Hospital course: Patient is a very pleasant 78-year-old female with a past medical history of hypertension, hyperlipidemia, and COPD. She presented to the emergency department secondary to complaints of bright red blood per rectum. Patient reports she began experiencing intermittent abdominal cramping/pain followed by multiple episodes of diarrhea yesterday. Patient reports yesterday evening she began noticing having bright red blood per her rectum. Patient reports blood was bright red and she had no control over it. Patient reports today she continues with episodes of bright red blood per rectum and is now having large clots as well. Patient denies history of GI bleeds in the past and reports last colonoscopy was about 4 or 5 years ago. Patient underwent full evaluation in the emergency department. Vital signs upon arrival blood pressure 169/83, heart rate 86, respiratory rate 18, temp 98.0F, SpO2 of 96% on room air. Labs completed and reviewed. CBC unremarkable with hemoglobin of 14.6. Coagulation profile showed a normal PTT of 22.6. BMP unremarkable with sodium 141, potassium 4.2, chloride 104, bicarb 26, and anion gap of 11. BUN normal findings at 15 with creatinine of 0.99 and GFR of 55. Blood glucose 107. Liver profile unremarkable. Troponin negative at less than 0.012. CTA abdomen and pelvis was completed with results stating colitis and/or mild diverticulitis redundant distal sigmoid colon. ER physician discussed case with general surgeon on-call who would like patient admitted under medicine services was consulted general surgery. Patient was admitted under our services at this time. General surgery took patient for EGD this morning. Physical exam: Pt seen and fully evaluated at bedside this morning upon return from EGD. Patient reports having another episode of bright red blood per rectum this mor tammy followed by episodes of yellowish colored liquid stool. She denies any further episodes of abdominal cramping or pain. She reports one episode of nausea and vomiting this morning. Vital signs reviewed and stable. General: Nontoxic, no distress and appears stated age. Derm: Skin warm and dry, normal coloration for ethnicity. Head: Atraumatic, normocephalic and symmetric. Eyes: EOMs intact, no lid lag, and anicteric sclera Mouth: no lip lesions, mucus membranes moist Cardiovascular: regular rate and rhythm with normal S1S2, no murmur, positive posterior tibial pulses bilaterally, and cap refill < 2 seconds. Lungs: Respirations even, regular, and unlabored on room air. Lungs CTA bilaterally, no rhonchi, no rales, no wheezing, and no accessory muscle usage. Abdominal: soft, nontender to palpation, no guarding, no appreciable organomegaly Ext: ROM intact. No gross muscle atrophy, no edema, no contractures Neuro: Speech clear, face symmetrical and CN II-XII grossly intact with no noted focal neuro deficits Psych: Alert and oriented to person, place, time, and situation. Appropriate and pleasant affect. Assessment and Plan of Care: Rectal bleeding, lower GI bleed Acute diverticulitis -Gen. surgery following, took patient for EGD this morning. -Monitor H&H every 6 hours x 4 and transfuse as needed for hemoglobin less than 7. -CBC does show stable hemoglobin at 12.4, however also shows a 2 g drop since admission with initial hemoglobin of 14.6 down to 12.4 this morning. -Continue Protonix 40 mg IVP daily. -Continue Clear liquid diet until advanced by general surgery team. -Continued gentle hydration with 0.9% normal saline at 75 mL per hour. -Continue IV antibiotics with Zosyn 3.375 g IVPB every 8 hours -SCDs for DVT prophylaxis. Hypertension Hyperlipidemia COPD Neuropathy Anxiety Home medications reviewed and reordered. Patient to continue daily medication regimen with Xanax 0.5 mg daily as needed, Pristiq 50 mg daily, Procardia 60 mg daily, and Paxil 40 mg nightly. Data and imaging reviewed: -Morning labs completed and reviewed. CBC and CMP were unremarkable. Magnesium normal findings at 1.9. CBC does show stable hemoglobin however also shows a 2 g drop since admission with initial hemoglobin of 14.6 down to 12.4 this morning. -Vital signs reviewed. Blood pressure 157/82, heart rate 80, respiratory rate 18, temp 98.5F, SpO2 93% on room air. CODE STATUS: Full code DVT prophylaxis: SCDs Anticipated discharge date: Clinical course to determine Anticipated discharge place: Clinical course to determine Patient was seen independently by Nurse Practitioner. This document was prepared using [employer] dictation software. Please allow for errors in hand expansion envelope maker while rare they do occur. I reviewed the documentation as provided by the CAITLIN above, who is the original author of this note. I agree with the documented assessment and plan, with the following changes: none Objective - Vital Signs Vital signs: Vital Signs Temp 98.5 F 05/26/23 07:28 Pulse 80 05/26/23 07:28 Resp 18 05/26/23 07:28 BP 157/82 05/26/23 07:28 Pulse Ox 93 L 05/26/23 07:28 FiO2 Intake & Output 05/25/23 05/26/23 05/26/23 18:59 06:59 18:59 Weight 56.245 kg Other: # Voids 2 - Labs CBC & Chem 7: 05/26/23 05:22 05/26/23 05:22 Labs: Abnormal Lab Results - Last 24 Hours (Table) 05/25/23 Range/Units 07:37 Glucose 107 H (74-99) mg/dL
[2023-05-26] MEDS: PANTOPRAZOLE 40 MG/10 ML VIAL IVP SCH (15:51)
[2023-05-26] MEDS: SODIUM CHLORIDE 0.9% 1,000 ML IV SCH (15:51)
[2023-05-26 18:35] LABS: HCT 39.7 % (34.0-46.0); HGB 13.1 gm/dL (11.4-16.0); MCH 29.8 pg (25.0-35.0); MCHC 32.9 g/dL (31.0-37.0); MCV 90.6 fL (80.0-100.0); Mean Platelet Volume 8.1; Platelet Count 309 k/uL (150-450); RBC 4.38 m/uL (3.80-5.40); RDW 12.9 % (11.5-15.5); WBC 8.3 k/uL (3.8-10.6)
[2023-05-26] MEDS: PARoxetine 20 MG TAB PO SCH (22:15)
[2023-05-26 22:47] VITALS: RESP 18
[2023-05-27] MEDS: PIPERACILLIN-TAZOBACTAM 3.375 GM in SODIUM CHLORIDE 0.9% 100 ML IVPB SCH (06:26)
[2023-05-27] MEDS: SODIUM CHLORIDE 0.9% 1,000 ML IV SCH (06:27)
[2023-05-27] MEDS: DESVENLAFAXINE SUCCINATE 50 MG TAB.ER.24H PO SCH (07:58)
[2023-05-27] MEDS: DICYCLOMINE 10 MG CAP PO SCH (07:59)
[2023-05-27] MEDS: ALPRAZolam 0.25 MG TAB PO SCH (07:59)
[2023-05-27] MEDS: PANTOPRAZOLE 40 MG/10 ML VIAL IVP SCH (07:59)
--- NOTE | 2023-05-27 08:35 | P.DS ---
Providers Date of admission: 05/25/23 13:27 Expected date of discharge: 05/27/23 Attending physician: Les Simpson MD Consults: 05/25/23 13:27 Consult Physician Urgent Consulting Provider: Citlali Reese Consult Reason/Comments: Diverticulitis, GI bleed Do you want consulting provider notified?: Already Contacted Primary care physician: Senthil Rutherford MD Hospital Course: Discharge Diagnosis: Rectal bleeding, lower GI bleed Acute diverticulitis. Hypertension Hyperlipidemia COPD Neuropathy Anxiety Hospital Course: Patient is a very pleasant 78-year-old female with a past medical history of hypertension, hyperlipidemia, and COPD. She presented to the emergency depart ment secondary to complaints of bright red blood per rectum. Patient reports she began experiencing intermittent abdominal cramping/pain followed by multiple episodes of diarrhea yesterday. Patient reports yesterday evening she began noticing having bright red blood per her rectum. Patient reports blood was bright red and she had no control over it. Patient reports today she continues with episodes of bright red blood per rectum and is now having large clots as well. Patient denies history of GI bleeds in the past and reports last colonoscopy was about 4 or 5 years ago. Patient underwent full evaluation in the emergency department. Vital signs upon arrival blood pressure 169/83, heart rate 86, respiratory rate 18, temp 98.0F, SpO2 of 96% on room air. Labs completed and reviewed. CBC unremarkable with hemoglobin of 14.6. Coagulation profile showed a normal PTT of 22.6. BMP unremarkable with sodium 141, potassium 4.2, chloride 104, bicarb 26, and anion gap of 11. BUN normal findings at 15 with creatinine of 0.99 and GFR of 55. Blood glucose 107. Liver profile unremarkable. Troponin negative at less than 0.012. CTA abdomen and pelvis was completed with results stating colitis and/or mild diverticulitis redundant distal sigmoid colon. ER physician discussed case with general surgeon on-call who would like patient admitted under medicine services was consulted general surgery. Patient was admitted under our services at this time. General surgery took patient for EGD on 05/26/23 and per verbal report was negative for any signs of bleeding showing only mild gastritis and very small hiatal hernia (awaiting for report to be dictated by surgeon in EMR). Per general surgery recommendations patient being discharged home on Levaquin 750 mg daily and Flagyl 500 mg 3 times daily for the next 10 days. Follow up with PCP in 1-2 days and with general surgeon in 1 week. Physical exam: Vital signs reviewed and stable. General: Nontoxic, no distress and appears stated age. Derm: Skin warm and dry, normal coloration for ethnicity. Head: Atraumatic, normocephalic and symmetric. Eyes: EOMs intact, no lid lag, and anicteric sclera Mouth: no lip lesions, mucus membranes moist Cardiovascular: regular rate and rhythm with normal S1S2, no murmur, positive posterior tibial pulses bilaterally, and cap refill < 2 seconds. Lungs: Respirations even, regular, and unlabored on room air. Lungs CTA bilaterally, no rhonchi, no rales, no wheezing, and no accessory muscle usage. Abdominal: soft, nontender to palpation, no guarding, no appreciable organomegaly Ext: ROM intact. No gross muscle atrophy, no edema, no contractures Neuro: Speech clear, face symmetrical and CN II-XII grossly intact with no noted focal neuro deficits Psych: Alert and oriented to person, place, time, and situation. Appropriate and pleasant affect. A total of 35 minutes of time were spent preparing this complex discharge summary. Pt was discharged on 05/27/2023 at 9:23 AM. Patient was seen independently by Nurse Practitioner. This document was prepared using [employer] dictation software. Please allow for errors in web operations lead while rare they do occur. Esa Nolen NP rendered care for this patient independently, reviewed the findings and plan as documented in the note above. I did not physically speak with or examine the patient on this date. Patient Condition at Discharge: Stable Plan - Discharge Summary Discharge Rx Participant: No New Discharge Prescriptions: New metroNIDAZOLE [Flagyl] 500 mg PO TID 10 Days #30 tab Levofloxacin [Levaquin] 750 mg PO DAILY 10 Days #10 tab Continue PARoxetine HCL [Paxil] 40 mg PO HS NIFEdipine XL [Procardia XL] 60 mg PO DAILY ALPRAZolam [Xanax XR] 0.5 mg PO DAILY Lansoprazole [Prevacid] 30 mg PO DAILY Ergocalciferol [Vitamin D2 (1250 Mcg = 74273 Iu)] 1,250 mcg PO TU Acetaminophen Tab [Tylenol] 500 mg PO DAILY Desvenlafaxine Succinate [Pristiq ER] 50 mg PO DAILY Discharge Medication List ALPRAZolam [Xanax XR] 0.5 mg PO DAILY 05/25/23 [History] Acetaminophen Tab [Tylenol] 500 mg PO DAILY 05/25/23 [History] Desvenlafaxine Succinate [Pristiq ER] 50 mg PO DAILY 05/25/23 [History] Ergocalciferol [Vitamin D2 (1250 Mcg = 44806 Iu)] 1,250 mcg PO TU 05/25/23 [History] Lansoprazole [Prevacid] 30 mg PO DAILY 05/25/23 [History] NIFEdipine XL [Procardia XL] 60 mg PO DAILY 05/25/23 [History] PARoxetine HCL [Paxil] 40 mg PO HS 05/25/23 [History] Levofloxacin [Levaquin] 750 mg PO DAILY 10 Days #10 tab 05/27/23 [Rx] metroNIDAZOLE [Flagyl] 500 mg PO TID 10 Days #30 tab 05/27/23 [Rx] Follow up Appointment(s)/Referral(s): Senthil Rutherford MD [Primary Care Provider] - 05/29/23 10:00 am Citlali Reese MD [STAFF PHYSICIAN] - 1 Week (Please call office to schedule appointment) Patient Instructions/Handouts: Gastritis (DC) Activity/Diet/Wound Care/Special Instructions: RN took home meds to pharmacy. Activity: As tolerated. Take breaks as needed. Diet: Heart healthy and carb consistent diet. Avoid salts, or foods with hidden salts such as canned or boxed foods and frozen dinners. Extra salt makes your heart work harder and traps the fluid in your body for longer. Special Instructions: Take all of your medications as directed and remember to keep all of your doctor's appointments and follow-up as needed. Thank you for allowing us to participate in your care, it was truly a pleasure having you for our patient!!! Discharge Disposition: HOME SELF-CARE
[2023-05-27 08:48] LABS: HCT 38.8 % (37.2-46.3); HGB 12.5 g/dL (12.0-15.0); MCH 28.9 pg (27.0-32.0); MCHC 32.2 g/dL (32.0-37.0); MCV 89.6 FL (80.0-97.0); Mean Platelet Volume 10.1 FL (9.5-12.2); NRBC Per 100 WBC 0 X 10*3/uL (0.00-0.01); Platelet Count 307 X 10*3/uL (140-440); RBC 4.33 X 10*6/uL (4.10-5.20); RDW 12.8 % (11.5-14.5)
[2023-05-27 08:58] LABS: ALT 11 U/L (8-44); AST 15 U/L (13-35); Albumin 3.9 g/dL (3.8-4.9); Albumin/Globulin Ratio 1.86 Ratio (1.60-3.17); Alkaline Phosphatase 56 U/L (41-126); Carbon Dioxide 24.7 mmol/L (21.6-31.8); Chloride 106 mmol/L (96-109); Globulin 2.1 g/dL (1.6-3.3); Glucose 92 mg/dL (70-110); Magnesium 1.9 mg/dL (1.5-2.4); Potassium 3.6 mmol/L (3.5-5.5); Sodium 141 mmol/L (135-145); Total Bilirubin 0.4 mg/dL (0.3-1.2)
[2023-05-27 11:03] VITALS: BP 163/83; PULSE 78; TEMP 97.4
--- NOTE | 2023-05-27 12:44 | P.PN ---
Subjective Progress Note Date: 05/27/23 CHIEF COMPLAINT: Bright red blood per rectum HISTORY OF PRESENT ILLNESS: Patient status post EGD revealed gastritis and hiatal hernia. Patient denies any abdominal pain. She's had no further rectal bleeding. She's on antibiotics for possible colitis. She denies any nausea or vomiting. Tolerated low fiber diet. WBC is 6.70 hgb stable at 12.5 PHYSICAL EXAM: VITAL SIGNS: Reviewed GENERAL: Well-developed in no acute distress. HEENT: No sclera icterus. Extraocular movements grossly intact. Moist buccal mucosa. Head is atraumatic, normocephalic. Hears conversational speech. No nasal drainage. NECK: Supple without lymphadenopathy. CHEST: Non-labored respirations and equal bilateral excursions. CARDIOVASCULAR: Palpable 2+ radial pulses. ABDOMEN: Soft. Nondistended. Nontender. MUSCULOSKELETAL: No clubbing or cyanosis. NEUROLOGIC: No focal or lateralizing signs. Cranial nerves II through XII grossly intact. PSYCH: Appropriate affect. Alert and oriented to person, place and time. SKIN: Well perfused. Good skin turgor. ASSESSMENT: 1. Lower GI bleed with Rectal bleeding 2. Possible colitis or diverticulitis noted on computed tomography scan 3. Gastritis and hiatal hernia noted on EGD PLAN: -Patient is stable for discharge from surgical standpoint -Recommend to continue oral antibiotics for colitis at discharge -Recommend outpatient colonoscopy after treatment of colitis/diverticulitis Physician Dial Equipment Engineer note has been reviewed by physician. Signing provider agrees with the documented findings, assessment, and plan of care. Please see additional documentation CHIEF COMPLAINT: Gastrointestinal bleeding HISTORY OF PRESENT ILLNESS: The patient is a 78 year old female who presents with acute bleeding. She is status post upper endoscopy with findings of gastritis. Abdominal pain has improved. REVIEW OF ORGAN SYSTEMS: RESPIRATORY: Has chronic obstructive pulmonary disease. CARDIOVASCULAR: Has hyperlipidemia. Has hypertensive heart disease. GASTROINTESTINAL: History of polyps. Has gastroesophageal reflux disease. Last colonoscopy 4 years ago. PHYSICAL EXAM: VITALS: Reviewed CONSTITUTIONAL: Well developed and in no acute distress. EYES: Conjuctivae without sclera icterus. Extraocular movements grossly intact. HEAD, EARS, NOSE, THROAT: Moist buccal mucosa. Head is atraumatic, normocephalic. Hears conversational speech. No nasal drainage. RESPIRATORY: Non-labored respirations and equal bilateral excursions. No gross wheezes. CARDIOVASCULAR: Palpable 2+ radial pulses. ABDOMEN: No diffuse peritonitis. MUSCULOSKELETAL: No clubbing cyanosis or edema SKIN: Warm and well perfused with good skin turgor. NEUROLOGIC: Cranial nerves II through XII grossly intact. No focal or lateralizing signs. PSYCH: Appropriate affect. Alert and oriented to person, place and time. Displays appropriate insight. CLINCAL LABS: Reviewed. Hemoglobin 14.6 on admission now 13.1 ASSESSMENT: 1. Acute sigmoid diverticulitis with bleeding 2. Hypertensive heart disease 3. Gastroesophageal reflux disease 4. Depressive disorder 5. Personal history of polyps 6. Hematochezia, bright red blood per rectum PLAN: 1. Recommend low fiber diet upon discharge 2. Recommend antibiotics for treatment for sigmoid diverticulitis 3. Recommend outpatient colonoscopy Objective - Vital Signs Vital signs: Vital Signs Temp 97.4 F L 05/27/23 07:57 Pulse 78 05/27/23 07:57 Resp 18 05/27/23 10:15 BP 163/83 05/27/23 07:57 Pulse Ox 96 05/27/23 07:57 FiO2 Intake & Output 05/26/23 05/27/23 05/27/23 18:59 06:59 18:59 Intake Total 250 1250 Balance 250 1250 Intake: IV 250 Intake, IV Titration 800 Amount Piperacillin-Tazobactam 3 200 .375 gm In Sodium Chloride 0.9% 100 ml @ 25 mls/hr IVPB Q8H [facility] Rx#: [id number] Sodium Chloride 0.9% 1, 600 000 ml @ 75 mls/hr IV . [id number] [facility] Rx#:[id number] Oral 450 Other: # Voids 1 - Labs CBC & Chem 7: 05/27/23 05:20 05/27/23 05:20 Labs: Abnormal Lab Results - Last 24 Hours (Table) 05/27/23 Range/Units 05:20 BUN 6.0 L (9.0-27.0) mg/dL BUN/Creatinine Ratio 7.50 L (12.00-20.00) Ratio Total Protein 6.0 L (6.2-8.2) g/dL Microbiology - Last 24 Hours (Table) 05/25/23 13:20 Blood Culture - Preliminary Blood 05/25/23 13:05 Blood Culture - Preliminary Blood
--- NOTE | 2023-06-10 10:56 | P.PCN ---
Date of Procedure: 05/26/23 Description of Procedure: PREOPERATIVE DIAGNOSIS: Acute gastrointestinal bleeding with hematochezia POSTOPERATIVE DIAGNOSIS: Diaphragmatic hiatal hernia Acute gastritis OPERATION: Esophagogastroduodenoscopy SURGEON: Citlali Reese MD ANESTHESIA: MAC. INDICATIONS: The patient is a 78-year-old female who presents with gastrointestinal bleeding. Benefits and risks of the procedure were described. Informed consent was obtained. DESCRIPTION: The patient was brought into the endoscopy suite and laid in the left lateral decubitus position. An Olympus gastroscope was passed along the posterior oropharynx down to the distal esophagus where the squamocolumnar junction was encountered at 35 cm from the incisors. The stomach was entered. Additional findings are listed below. The first through third portion of the duodenum was examined and unremarkable. Retroflexion of the scope confirmed Hill grade 3 lower esophageal valve. The squamocolumnar junction demonstrated LA grade B erosive esophagitis. The stomach was desufflated. The patient tolerated the procedure well. FINDINGS: Squamocolumnar junction 35 cm from the incisors. Diaphragmatic hiatus at 38 cm. Hiatal hernia, 3 cm Hill grade 3 lower esophageal valve. LA grade B erosive esophagitis. Acute gastritis without active bleeding No duodenal ulcers RECOMMENDATIONS: 1. Continue with omeprazole 40 mg daily 2. Recommend lower endoscopy when stable
== END 2023-05-27 11:16 | disposition home or self-care (01) | DRG 379 ==
LOC: EC 07:04 → 4SSUR 13:27
PROVIDERS: ADMIT Family Medicine; ATTEND Family Medicine
PROC: 0DJ08ZZ Inspection of Upper Intestinal Tract, Via Natural or Artificial Opening Endoscopic (ICD-10-PCS; principal; 2023-05-26 07:30)
DX: K57.33 Diverticulitis of large intestine without perforation or abscess with bleeding (principal); K29.00 Acute gastritis without bleeding; K21.00 Gastro-esophageal reflux disease with esophagitis, without bleeding; K92.0 Hematemesis; I10 Essential (primary) hypertension; E78.5 Hyperlipidemia, unspecified; J44.9 Chronic obstructive pulmonary disease, unspecified; G62.9 Polyneuropathy, unspecified; F41.9 Anxiety disorder, unspecified; K44.9 Diaphragmatic hernia without obstruction or gangrene; F32.A Depression, unspecified; Z87.891 Personal history of nicotine dependence; Z79.899 Other long term (current) drug therapy; Z88.5 Allergy status to narcotic agent
CPT/HCPCS: 36415; 43235; 74174; 80053; 83605; 83735; 84484; 85025; 85027; 85730; 86850; 86900; 86901; 87040; 96365; 96366; 99285

== ENCOUNTER → 2023-10-20 | Outpatient (CLI) | payer MEDICARE, BC ==
--- NOTE | 2023-10-20 11:30 | FL ---
EXAMINATION TYPE: FL barium swallow DATE OF EXAM: 10/20/2023 10:30 AM COMPARISON: Chest radiograph from same day. CLINICAL INDICATION:Female, 78 years old with history of R13.10 DYSPHAGIA, UNSPECIFIED; [facility], TECHNIQUE: The procedure was explained and patient history elicited. All patient questions were ans wered prior to start of procedure. Multiple spot fluoroscopic images of the esophagus were obtained a fter the oral ingestion of effervescent crystals and liquid barium as the contrast agent. Fluoroscopic time: 30 sec Radiographs taken: 70 DAP: 602 mGym2 FINDINGS: The esophagus demonstrates normal primary and secondary peristalsis. The esophageal mucosa is smooth without evidence of focal stricture, ulceration, or abnormal outpouching. No gastroesophageal reflu x disease was identified IMPRESSION: Free flow of contrast through the esophagus without evidence for aspiration. No evidence for mass.
== END | disposition home or self-care (01) ==
LOC: RADUSWWP 09:50
PROVIDERS: ATTEND Internal Medicine
DX: R13.10 Dysphagia, unspecified (principal)
CPT/HCPCS: 74220

== ENCOUNTER → 2024-03-15 | Outpatient (CLI) | payer MEDICARE, BC ==
--- NOTE | 2024-03-21 12:20 | MM ---
Reason for Exam: Screening (asymptomatic). Last screening mammogram was performed 12 month(s) ago. Patient History: Menarche at age 13. Patient has no children. Left ovary removed at age 53. Right ovary removed at age 53. Hysterectomy at age 53. Postmenopausal. Maternal cousin had breast cancer at or over age 50. Maternal cousin had breast cancer at or over age 50. Maternal cousin had breast cancer at or over age 50. Sister had breast cancer at or over age 50. Risk Values: Lina 5 year model risk: 3.4%. NCI Lifetime model risk: 6.5%. Prior Study Comparison: 01/07/2018 Bilateral Screening Mammogram, [facility]. 01/12/2019 Bilateral Screening Mammogram, [facility]. 03/13/2023 Bilateral MG 3D screening mammo w/cad, [facility]. Tissue Density: The breasts are heterogeneously dense, which may obscure small masses. Findings: Analyzed By CAD. The pattern is symmetrical. Multiple benign spherical calcifications are present. A few punctate calcifications are present. Pattern appears stable No suspicious groups of microcalcifications, spiculated or lobular masses, architectural distortion or other secondary signs of malignancy are mammographically apparent. Overall Assessment: Benign, BI-RAD 2 Management: Screening Mammogram of both breasts in 1 year. A negative mammogram report should not preclude additional follow up of suspicious palpable abnormalities. Patient should continue monthly self breast exam. A clinical breast exam by your physician is recommended on an annual basis and results should be correlated with mammographic findings. Note on Lina scores and lifetime risk: 1. A Lina score greater than 3% is considered moderate risk. If this is the case, consider specialist referral to assess eligibility for a risk reducing agent. 2. If overall lifetime risk for the development of breast cancer is 20% or higher, the patient may qualify for future screening with alternating mammogram and breast MRI. [facility], , 03/21/2024 12:17 PM. Electronically signed and approved by: Carlos Eduardo Angelo D.O. Radiologis
--- NOTE | 2024-03-22 21:42 | BD ---
EXAMINATION TYPE: Axial Bone Density DATE OF EXAM: 03/15/2024 CLINICAL HISTORY: 78 years old Female. ICD-10 CODE: Z78.0 POST WOODROW OSTEO SCR Height: 60 Weight: 125 FRAX RISK QUESTIONS: Alcohol (3 or more units per day): no Family History (Parent hip fracture): no Glucocorticoids (More than 3mos): no (Ex: prednisone, prednisolone, methylprednisolone, dexamethasone, and hydrocortisone). History of Fracture in Adulthood: no Secondary Osteoporosis: 1. Type 1 Diabetes: no 2. Hyperthyroidism: no 3. Menopause before 45: yes 4. Malnutrition: no 5. Chronic liver disease: no Rheumatoid Arthritis: no Current Tobacco Use: no RISK FACTORS HISTORY OF: Surgery to Spine/Hip(right/left)/Wrist (right/left): no EXAM MEASUREMENTS: Bone mineral densitometry was performed using the [employer]. Bone mineral density as measured about the Lumbar spine is: ----- L1-L4(G/cm2): 1.035 T Score Values are as follows: ----- L1: -1.6 ----- L2: -1.6 ----- L3: -1.9 ----- L4: -2.1 ----- L1-L4: -1.2 Z Score Values are as follows: ----- L1: 0.9 ----- L2: 0.6 ----- L3: 0.9 ----- L4: 0.9 ----- L1-L4: 0.6 Bone mineral density : baseline Bone mineral density about the R hip (g/cm2): 0.768 Bone mineral density about the L hip (g/cm2): 0.747 T Score values are as follows: -----R Neck: -1.6 -----L Neck: -1.6 -----R Total: -1.9 -----L Total: -2.1 Z Score values are as follows: -----R Neck: 0.6 -----L Neck: 0.7 -----R Total: 0.2 -----L Total: 0.0 Bone mineral density : baseline FRAX%s: The graph provided illustrates a 12.9 chance for a major osteoporotic fx and a 3.1chance for the hips probability for fx in 10 years time. IMPRESSION: Osteopenia (T Score between -2.5 and -1). There is slightly increased risk of fracture and the patient may be considered for treatment. Re-Screen 2-5 years. NOTE: T-SCORE=SD OF THE YOUNG ADULT MEAN. [facility], Workstation: [facility], 03/22/2024 9:40 PM
== END | disposition home or self-care (01) ==
LOC: RADMAMWWP 10:21
PROVIDERS: ATTEND Internal Medicine
DX: Z12.31 Encounter for screening mammogram for malignant neoplasm of breast (principal); Z13.820 Encounter for screening for osteoporosis; M85.89 Other specified disorders of bone density and structure, multiple sites; Z78.0 Asymptomatic menopausal state; Z80.3 Family history of malignant neoplasm of breast; Z90.721 Acquired absence of ovaries, unilateral
CPT/HCPCS: 77063; 77067; 77080

== ENCOUNTER → 2024-03-31 | Outpatient (CLI) | payer MEDICARE, BC ==
--- NOTE | 2024-03-31 11:56 | CTL ---
EXAMINATION TYPE: CT Low Dose Lung DATE OF EXAM ORDERED: 03/31/2024 HISTORY: Nicotine dependence, current smoker, 50 pack-year history. Lung cancer screening CT DLP: 78.[address] CTDI: 2.10 mGy Automated exposure control for dose reduction was used. SCREENING VISIT: Second screening visit COMPARISON: CT Low Dose Lung 03/13/2023 TECHNIQUE: Low dose computed tomography scan was performed through the chest at 1 mm thick sections a nd reconstructed images in multiple planes at 1 mm and [address] DIAGNOSTIC QUALITY: Satisfactory FINDINGS: Nodules: No clinically significant pulmonary nodules. LUNGS: COPD: Severity: Mild Fibrosis: Severity: None Lymph nodes: None Other findings: None RIGHT PLEURAL SPACE: Effusion: None Calcification: None Thickening: None Pneumothorax: None LEFT PLEURAL SPACE: Effusion: None Calcification: None Thickening: None Pneumothorax: None HEART: Heart Size: Normal Coronary Calcification: None Pericardial Effusion: None OTHER FINDINGS: Upper abdomen: None Bony thorax: Cervical fusion hardware demonstrated. Multilevel degenerative disc disease. Supraclavicular region: None Other: Bilateral breast dystrophic calcifications. IMPRESSION: No clinically significant pulmonary nodules. CT LUNG RAD AND CT CHEST RECOMMENDATION: Lung-Rad 1 Negative: Continue annual screening with LDCT in 12 months. S Modifier (other clinically significant findings): None [facility], , 03/31/2024 11:54 AM
== END | disposition home or self-care (01) ==
LOC: RADCTMAIN 11:08
PROVIDERS: ATTEND Internal Medicine
DX: Z12.2 Encounter for screening for malignant neoplasm of respiratory organs (principal); J44.9 Chronic obstructive pulmonary disease, unspecified; F17.210 Nicotine dependence, cigarettes, uncomplicated
CPT/HCPCS: 71271

== ENCOUNTER → 2025-01-20 | Outpatient (CLI) | payer MEDICARE, BC ==
[2025-01-20 15:10] LABS: Basophils # (A) 0.09 X 10*3/uL (0.00-0.10); Basophils % (A) 1.5 %; Eosinophils # (A) 0.15 X 10*3/uL (0.04-0.35); Eosinophils % (A) 2.5 %; HCT 44.4 % (37.2-46.3); HGB 13.8 g/dL (12.0-15.0); Immature Grans, Automated 0.20 %; Lymphocytes # (A) 1.34 X 10*3/uL (0.90-5.00); Lymphocytes % (A) 22.7 %; MCH 27.5 pg (27.0-32.0); MCHC 31.1 g/dL (32.0-37.0); MCV 88.6 FL (80.0-97.0); Monocytes # (A) 0.66 X 10*3/uL (0.20-1.00); Monocytes % (A) 11.2 %; NRBC Per 100 WBC 0 X 10*3/uL (0.00-0.01); Neutrophils # (A) 3.65 X 10*3/uL (1.80-7.70); Neutrophils % (A) 61.9 %; Platelet Count 398 X 10*3/uL (140-440); RBC 5.01 X 10*6/uL (4.10-5.20); RDW 13.8 % (11.5-14.5); WBC 5.90 X 10*3/uL (4.50-10.00)
[2025-01-20 15:52] LABS: Anion Gap 13.30 mmol/L (4.00-12.00); BUN/Creat Ratio 13.33 Ratio (12.00-20.00); Blood Urea Nitrogen 12.0 mg/dL (9.0-27.0); Carbon Dioxide 25.7 mmol/L (21.6-31.8); Chloride 105 mmol/L (96-109); Cholesterol 276.00 mg/dL (0.00-200.00); Glucose 107 mg/dL (70-110); HDL Cholesterol 97.10 mg/dL (40.00-60.00); LDL Cholesterol,Calculated 146.5 mg/dL (0.0-131.0); Magnesium 1.9 mg/dL (1.5-2.4); Potassium 4.2 mmol/L (3.5-5.5); Sodium 144 mmol/L (135-145); Triglycerides 162.00 mg/dL (0.00-149.00); VLDL Calculation 32.40 mg/dL (5.00-40.00)
[2025-01-20 15:53] LABS: ALT 10 U/L (8-44); AST 16 U/L (13-35); Albumin 4.8 g/dL (3.8-4.9); Albumin/Globulin Ratio 2.29 Ratio (1.60-3.17); Alkaline Phosphatase 63 U/L (41-126); Calcium 9.8 mg/dL (8.7-10.3); Globulin 2.1 g/dL (1.6-3.3); Total Protein 6.9 g/dL (6.2-8.2)
== END | disposition home or self-care (01) ==
LOC: LABWHC1 09:43
PROVIDERS: ATTEND Internal Medicine
DX: I10 Essential (primary) hypertension (principal); M85.80 Other specified disorders of bone density and structure, unspecified site; E78.5 Hyperlipidemia, unspecified; R19.7 Diarrhea, unspecified
CPT/HCPCS: 36415; 80053; 80061; 82306; 83036; 83735; 84443; 85025; 87045; 87046; 87328; 87329; 87493